=== PATIENT | male | born 1970 | race Caucasian/White ===

== ENCOUNTER 2018-05-07 22:47 | Emergency (ER) | payer OTHER ==
[~2018-05-07] VITALS: Ht 170.2 cm; Wt 90.9 kg
[2018-05-07 22:58] LABS: GLUCOSE,POINT OF CARE 148 MG/DL (70-110)
[2018-05-07] MEDS ORDERED: SODIUM CHLORIDE 0.9% 1,000 ML IV ONE (23:15)
[2018-05-07] MEDS ORDERED: MULTIVITAMINS, THERAPEUTIC TABLET PO ONE (23:15)
[2018-05-08 00:14] VITALS: BP 158/90
== END 2018-05-08 01:08 | disposition home or self-care (01) ==
LOC: EMS 22:48
DX: F10.129 Alcohol abuse with intoxication, unspecified (principal); F15.929 Other stimulant use, unspecified with intoxication, unspecified; Y90.9 Presence of alcohol in blood, level not specified
CPT/HCPCS: J7030